=== PATIENT | female | born 1990 | race Caucasian/White ===

== ENCOUNTER 2018-01-10 05:54 | Emergency (ER) | payer OTHER ==
--- NOTE | 2018-01-10 06:32 | ED Physician Documentation ---
PD HPI BACK PAIN - Stated complaint Stated Complaint: BK PX - Chief complaint Chief Complaint: Trauma Ch/Bk - History obtained from History obtained from: Patient - History of Present Illness Timing - onset: Enter time (04:30) Timing - details: Abrupt onset, Constant Pain level max: 8 (with movement) Pain level now: 6 Location: Lower, Left Quality: Pain Associated symptoms: No: Fever, Weakness, Numbness, Incontinent of urine, Unable to urinate, Hematuria, Incontinent of stool Improves with: Rest Worsened by: Movement Similar symptoms before: Other (has had milder left low back pain in the past) Recently seen: Not recently seen - Additional information Additional information: sudden onset left LBP 4:30 AM when she was pulling on her pants to get ready for work. 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 - Present Medications Home Medications: Ambulatory Orders Medication Instructions Recorded Confirmed Cyclobenzaprine [Flexeril] 10 mg PO TID PRN #20 tablet 01/10/18 Ondansetron Odt [Zofran] 4 mg TL Q6H PRN #14 tablet 01/10/18 diazePAM [Valium] 5 - 10 mg PO TID PRN #15 tablet 01/10/18 oxyCODONE/ACET 5/325 [Percocet 5 1 - 2 each PO Q6H PRN #14 tablet 01/10/18 mg/325 mg] - Allergies Allergies/Adverse Reactions: Allergies Allergy/AdvReac Type Severity Reaction Status Date / Time acetaminophen [From Vicodin] AdvReac Nausea Verified 01/10/18 06:00 hydrocodone [From Vicodin] AdvReac Nausea Verified 01/10/18 06:00 - Social History Does the pt smoke?: No Smoking Status: Never smoker Does the pt drink ETOH?: Yes Does the pt have substance abuse?: No - Immunizations Immunizations are current?: Yes PD ED PE NORMAL - Vitals Vital signs reviewed: Yes - General General: Alert and oriented X 3, Well developed/nourished, Other (appears uncomfortable at rest and obvious painful distress with movement involving lower back) - Back Back: No CVA TTP, No spinal TTP - Derm Derm: Normal color, Warm and dry, No rash - Extremities Extremities: Normal ROM s pain - Neuro Neuro: Alert and oriented X 3, No motor deficit (5/5 dorsi/plantarflexion), No sensory deficit (LTS intact BLE), Other (2+/4 DTR bilateral patella) Results - Vitals Vitals: Vital Signs - 24 hr 01/10/18 01/10/18 05:57 08:13 Temperature 36.0 C L 37.4 C Heart Rate 126 H 88 Respiratory 20 20 Rate Blood Pressure 154/108 H 141/93 H O2 Saturation 100 99 Oxygen O2 Source Room air PD MEDICAL DECISION MAKING - ED course Complexity details: reviewed results, re-evaluated patient, considered differential, d/w patient ED course: HPI s/o lumbar sprain and PE does not suggest alternative diagnosis. emergent imaging not indicated at this time. patient reports improvement with oxycodone and flexeril (zofran given due to h/o nausea with opiate medication), but still significant pain with movement and thus given IM dilaudid which provided adequate relief - Sepsis Event Vital Signs: Vital Signs - 24 hr 01/10/18 01/10/18 05:57 08:13 Temperature 36.0 C L 37.4 C Heart Rate 126 H 88 Respiratory 20 20 Rate Blood Pressure 154/108 H 141/93 H O2 Saturation 100 99 Oxygen O2 Source Room air Departure - Departure Disposition: 01 Home, Self Care Clinical Impression: Lumbar sprain Qualifiers: Encounter type: initial encounter Qualified Code(s): S33.5XXA - Sprain of ligaments of lumbar spine, initial encounter Condition: Good Instructions: ED Back Care Tips, ED Sprain Strain Lumbar Follow-Up: [facility] [Provider Group] (3-5 days) Prescriptions: Cyclobenzaprine [Flexeril] 10 mg PO TID PRN #20 tablet PRN Reason: Spasms diazePAM [Valium] 5 - 10 mg PO TID PRN #15 tablet PRN Reason: Spasms Ondansetron Odt [Zofran] 4 mg TL Q6H PRN #14 tablet PRN Reason: Nausea / Vomiting oxyCODONE/ACET 5/325 [Percocet 5 mg/325 mg] 1 - 2 each PO Q6H PRN #14 tablet PRN Reason: Pain Comments: You can take the percocet (oxycodone/acetaminophen) and cyclobenzaprine as needed for pain/spasms per the prescription instructions. The ondansetron can be taken as needed for nausea as per prescription instructions. If these medications do not adequately control your pain, you can try the diazepam IN PLACE OF the cyclobenzaprine. However, you cannot take diazepam if you are , so if you think you might be , you need to take a test before taking the valium. If you have a positive test, DO NOT take the diazepam. Forms: Activity restrictions Discharge Date/Time: 01/10/18 08:45
[2018-01-10] MEDS ORDERED: oxyCODONE 5 MG TABLET PO STA (07:02)
[2018-01-10] MEDS ORDERED: ONDANSETRON ODT 4 MG TABLET TL STA (07:03)
[2018-01-10] MEDS ORDERED: CYCLOBENZAPRINE 10 MG TABLET PO STA (07:03)
[2018-01-10 08:14] VITALS: BP 141/93
[2018-01-10] MEDS ORDERED: HYDROmorphone 1 MG/ML CARPUJECT IM STA (08:17)
== END 2018-01-10 08:45 | disposition home or self-care (01) ==
LOC: ED 05:54
DX: S33.5XXA Sprain of ligaments of lumbar spine, initial encounter (principal); X50.1XXA Overexertion from prolonged static or awkward postures, initial encounter; Y93.89 Activity, other specified
CPT/HCPCS: 96372; 99283; A9270; J1170; Q0162